=== PATIENT | male | born 2000 | race Caucasian/White ===

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

== ENCOUNTER 2019-02-18 06:02 | Emergency (ER) | payer OTHER ==
[~2019-02-18] VITALS: Ht 177.8 cm; Wt 100.8 kg
[~2019-02-18 06:02] MED LIST: BACL10TA4 PO; NAPR-54 PO
[2019-02-18 06:09] VITALS: BP 123/74
--- NOTE | 2019-02-18 06:15 | NUR ---
PT BIB MOTHER C/O WEAKNESS AFTER HEADACHE; DENIES TRAUMA OR FALL. PT STATES HE HAD A HEADACHE YESTURDAY; PT STATES HE TOOK 4 200MG IBUPROFEN W/O RELIEF, 2 HOURS LATER PT TOOK 2 200MG IBUPROFEN; PT STATES HE WENT TO SLEEP AFTER AND WHEN HE WOKE UP HE FELT WEAK AND THAT HE COULD NOT STAND. PT STATES HE WANTS TO KNOW WHY HE "FELLS THIS WAY AFTER TAKING MEDICINE". PT STATES 0/10 PAIN AT THIS TIME. DENIES N/V/D, SOB, OR CP. --PT ACTING APPROPRIATLY. AAOX4. BREATHING EQUAL AND UNLABORED. PT IN GOWN, IN BED; BED IN LOWER LOCKED POSITION. ER MD AWARE OF PT STATUS; WILL CONTINUE TO MONITOR. PMH: DENIES
--- NOTE | 2019-02-18 06:15 | NUR ---
PT AMBULATED TO BED #3
[2019-02-18 07:10] LABS: APPEARANCE,URINE CLEAR (CLEAR); BILIRUBIN,URINE NEGATIVE (NEGATIVE); BLOOD, URINE NEGATIVE (NEGATIVE); COLOR,URINE YELLOW (YELLOW); LEUKOCYTE ESTERASE ,URINE NEGATIVE (NEGATIVE); NITRITE, URINE NEGATIVE (NEGATIVE); PH,URINE 5.5 (5.0-9.0); UGLUCOSE NEGATIVE (NEGATIVE)
[2019-02-18 07:19] LABS: BARBITURATE, URINE NEG. ng/ml (NEG <=200); BENZODIAZEPINE, URINE NEG. ng/mL (NEG <=200); CANNABINOID, URINE NEG. ng/mL (NEG <=50); COCAINE, URINE NEG. ng/mL (NEG <=300); OPIATE, URINE NEG. ng/mL (NEG <=2000); PHENCYCLIDINE SCREEN,URINE NEG. ng/mL (NEG <=25)
--- NOTE | 2019-02-18 07:26 | NUR ---
Pt report given to LUIGI Black. Transfer of care at this time.
--- NOTE | 2019-02-18 07:26 | NUR ---
ASSUMED CARE OF PT FROM LUIGI LR
[2019-02-18 07:27] LABS: ANION GAP 12.5 (8-16); CARBON DIOXIDE 27.4 mmol/L (21-32); CREATININE 0.8 mg/dL (0.7-1.3); POTASSIUM 3.9 mmol/L (3.5-5.1)
[2019-02-18 07:29] LABS: BASOPHILS % (AUTO) 0.4 % (0.0-2.0); EOSINOPHILS # (AUTO) 0.1 K/uL (0-0.4); EOSINOPHILS % (AUTO) 2.3 % (0.0-4.0); HEMATOCRIT 46.8 % (36-52); HEMOGLOBIN 16.1 g/dL (12.0-18.0); LYMPHOCYTES # (AUTO) 2.2 K/uL (2.0-11.5); LYMPHOCYTES % (AUTO) 36.7 % (20.5-51.1); MEAN CORPUSCULAR HEMOGLOBIN 31 pg (27-31); MEAN CORPUSCULAR HGB CONC 35 g/dL (33-37); MEAN CORPUSCULAR VOLUME 88.8 fL (80-94); MONOCYTES # (AUTO) 0.6 K/uL (0.8-1.0); NEUTROPHILS % (AUTO) 50.6 % (42.2-75.2); PLATELET COUNT (AUTO) 232 K/uL (140-450); RED BLOOD CELL COUNT(AUTO) 5.27 MIL/uL (4.20-6.10); WHITE BLOOD COUNT (AUTO) 5.9 K/uL (4.5-11.0)
[2019-02-18 07:33] LABS: ALBUMIN 3.9 g/dL (3.4-5.0); TOTAL BILIRUBIN 0.4 mg/dL (0.0-1.0)
[2019-02-18 07:57] VITALS: BP 121/68
== END 2019-02-18 07:58 | disposition home or self-care (01) ==
LOC: MED 06:02
DX: R53.1 Weakness (principal); R51 Headache; M54.9 Dorsalgia, unspecified; Z79.1 Long term (current) use of non-steroidal anti-inflammatories (NSAID); Z79.899 Other long term (current) drug therapy
CPT/HCPCS: 36415; 80053; 80305; 81003; 85025; 99283